=== PATIENT | male | born 1960 | race Native Hawaiian/Other Pacific Islander ===

== ENCOUNTER 2020-08-09 08:57 | Observation (INO) | payer OTHER ==
[2020-08-09] VITALS (9 sets, daily range): BP systolic 127–144; BP diastolic 65–81; TEMP 97.4–100.2
[~2020-08-09] VITALS: Ht 185.4 cm; Wt 91.3 kg
[2020-08-09 09:47] LABS: PLATELET COUNT 205 K/uL (142-355)
[2020-08-09 09:57] LABS: POTASSIUM 3.6 mmol/L (3.6-5.2)
[2020-08-09 10:09] LABS: PARTIAL THROMBOPLASTIN TIME 26.3 SECONDS (24.5-33.6)
[2020-08-09] MEDS ORDERED: ONDA4TAB3 PO (14:17)
[2020-08-09] MEDS ORDERED: IVERMECTIN3 MG PO (16:30)
[2020-08-09] MEDS ORDERED: REMERON SOLTAB15 MG PO (16:31)
[2020-08-09] MEDS ORDERED: PROM25TA52 PO (16:32)
[2020-08-09] MEDS ORDERED: MEDROL DOSEPAK4 MG PO (16:35)
[2020-08-09] MEDS ORDERED: OXYC5TAB53 PO (16:36)
[2020-08-09] MEDS ORDERED: ZITHROMAX500 MG PO (16:36)
[2020-08-09] MEDS ORDERED: TAMS0.4C PO (16:37)
[2020-08-09] MEDS ORDERED: KETO10TA34 PO (16:37)
[2020-08-10] VITALS: BP 138/77; TEMP 97.7
[2020-08-10 04:00] VITALS: BP 119/74; TEMP 98.4
[2020-08-10 08:00] VITALS: BP 119/71; TEMP 98.1
[2020-08-10 08:17] LABS: PLATELET COUNT 239 K/uL (142-355)
[2020-08-10 08:30] LABS: POTASSIUM 3.7 mmol/L (3.6-5.2)
[2020-08-10 12:00] VITALS: BP 123/74; TEMP 98.8
[2020-08-10] MEDS ORDERED: ZITHROMAX500 MG PO (14:02)
[2020-08-10] MEDS ORDERED: CEFDINIR300 MG PO (14:03)
[2020-08-10] MEDS ORDERED: DEXAMETHASON4 MG PO (14:04)
== END 2020-08-10 15:05 | disposition home or self-care (01) ==
LOC: ED 08:57 → MED/SURG 10:16 → UNDODEPER 08-13 11:18
PROVIDERS: Emergency Medicine Emergency Medical Services; ADMIT Internal Medicine Endocrinology, Diabetes & Metabolism; ATTEND Internal Medicine Endocrinology, Diabetes & Metabolism
DX: U07.1 COVID-19 (principal); J18.8 Other pneumonia, unspecified organism; N40.0 Benign prostatic hyperplasia without lower urinary tract symptoms; G47.09 Other insomnia; R06.02 Shortness of breath; M62.81 Muscle weakness (generalized); R06.9 Unspecified abnormalities of breathing
CPT/HCPCS: 80053; 83605; 85027; 85610; 85730; 87040; 87635; 94760; 96365; 96375; 99220; 99284; G0378; J0696; J1100; J1650; U0003

== ENCOUNTER 2020-08-17 12:05 | Outpatient (CLI) | payer OTHER ==
[~2020-08-17 12:05] MED LIST: CEFDINIR300 MG PO; DEXAMETHASON4 MG PO; IVERMECTIN3 MG PO; KETO10TA34 PO; MEDROL DOSEPAK4 MG PO; ONDA4TAB3 PO; OXYC5TAB53 PO; PROM25TA52 PO; REMERON SOLTAB15 MG PO; TAMS0.4C PO; ZITHROMAX500 MG PO
== END 2020-08-17 20:59 | disposition home or self-care (01) ==
LOC: RAD 12:05
PROVIDERS: ATTEND Internal Medicine
DX: J06.9 Acute upper respiratory infection, unspecified (principal)

== ENCOUNTER 2020-08-30 08:35 | Outpatient (CLI) | payer OTHER ==
[2020-08-30 08:47] LABS: PLATELET COUNT 195 K/uL (142-355)
== END 2020-08-30 19:26 | disposition home or self-care (01) ==
LOC: LABW 08:35
PROVIDERS: ATTEND Internal Medicine
DX: U07.1 COVID-19 (principal); Z11.59 Encounter for screening for other viral diseases
CPT/HCPCS: 36415; 80053; 85027; 86769